=== PATIENT | female | born 1985 | race African-American/Black ===

== ENCOUNTER 2016-08-07 19:05 | Emergency (ER) | payer OTHER ==
[~2016-08-07] VITALS: Ht 165.1 cm; Wt 110.2 kg
[~2016-08-07 19:05] MED LIST: CYCLOBENZAPRINE5 MG PO; ERYTHROMYCIN E3.5 G3 OPHTHALMIC; FLEXERIL PO; FLOXIN OTI0.3 %/5 M1 OT; IBUPROFEN 600600 M1 PO; NAPROSYN500 MG PO; NORCO 5-325 TA1 EACH PO; PENICILLIN VK500 M1 PO; PERCOCET 5-3251 EACH PO; TYLENOL325 MG PO
[2016-08-07 19:07] VITALS: BP 131/82
[2016-08-07] MEDS ORDERED: VENTOLIN HFA 1818 GM INH (19:33)
[2016-08-07] MEDS ORDERED: TESSALON PERLE100 MG PO (19:33)
== END 2016-08-07 20:05 | disposition home or self-care (01) ==
LOC: ER 19:05
DX: J06.9 Acute upper respiratory infection, unspecified (principal); Z86.2 Personal history of diseases of the blood and blood-forming organs and certain disorders involving the immune mechanism; Z88.5 Allergy status to narcotic agent; Z88.1 Allergy status to other antibiotic agents

== ENCOUNTER 2016-12-10 14:09 | Emergency (ER) | payer OTHER ==
[~2016-12-10] VITALS: Ht 165.1 cm; Wt 112.0 kg
[~2016-12-10 14:09] MED LIST changes: +TESSALON PERLE100 MG PO; +VENTOLIN HFA 1818 GM INH
[2016-12-10 14:37] LABS: URINE BILIRUBIN NEGATIVE (Negative); URINE BLOOD 2+ (Negative); URINE COLOR YELLOW; URINE GLUCOSE-RANDOM* NEGATIVE (Negative); URINE KETONES NEGATIVE (Negative); URINE PROTEIN (DIPSTICK) 1+ (Negative); URINE SPECIFIC GRAVITY 1.025 (1.003-1.035)
[2016-12-10 14:38] LABS: URINE LEUKOCYTES-REFLEX 2+ (Negative)
[2016-12-10] MEDS ORDERED: KEFLEX500 MG PO (14:39)
[2016-12-10 14:43] LABS: CASTS None Seen /LPF (None Seen); CRYSTALS None Seen /LPF (None Seen); SQUAMOUS 4-10 Moderate /LPF (0-3); URINE WBC-REFLEX >25 Many /HPF (0-5)
[2016-12-10 14:44] LABS: URINE RBC 0-2 Rare /HPF (0-2)
[2016-12-10 15:12] VITALS: BP 119/76
== END 2016-12-10 15:12 | disposition home or self-care (01) ==
LOC: ER 14:09
PROVIDERS: Physician Assistant
DX: N39.0 Urinary tract infection, site not specified (principal); F10.99 Alcohol use, unspecified with unspecified alcohol-induced disorder; Z86.2 Personal history of diseases of the blood and blood-forming organs and certain disorders involving the immune mechanism; Z88.5 Allergy status to narcotic agent; Z88.2 Allergy status to sulfonamides; Z88.1 Allergy status to other antibiotic agents

== ENCOUNTER 2016-12-31 18:53 | Emergency (ER) | payer OTHER ==
[~2016-12-31] VITALS: Ht 165.1 cm; Wt 113.4 kg
[~2016-12-31 18:53] MED LIST changes: +KEFLEX500 MG PO
[2016-12-31] MEDS ORDERED: ULTRAM 50MG TAB50 MG PO (21:13)
[2016-12-31] MEDS ORDERED: IBUPROFEN 600600 M1 PO (21:13)
[2016-12-31] MEDS ORDERED: TIZANIDINE HCL4 MG PO (21:13)
[2016-12-31 21:37] VITALS: BP 120/86
[2017-01-03] MEDS ORDERED: CYCLOBENZAPRINE5 MG PO (16:13)
[2017-01-03] MEDS ORDERED: MOBIC7.5 MG PO (16:13)
== END 2016-12-31 21:38 | disposition home or self-care (01) ==
LOC: ER 18:53
DX: M25.551 Pain in right hip (principal); M25.511 Pain in right shoulder; F10.99 Alcohol use, unspecified with unspecified alcohol-induced disorder; Z86.2 Personal history of diseases of the blood and blood-forming organs and certain disorders involving the immune mechanism; Z88.5 Allergy status to narcotic agent; Z88.1 Allergy status to other antibiotic agents; Z88.2 Allergy status to sulfonamides; V89.2XXA Person injured in unspecified motor-vehicle accident, traffic, initial encounter; Y93.I9 Activity, other involving external motion; Y92.89 Other specified places as the place of occurrence of the external cause; Y99.8 Other external cause status

== ENCOUNTER 2017-05-22 18:54 | Emergency (ER) | payer OTHER ==
[~2017-05-22] VITALS: Ht 165.1 cm; Wt 108.4 kg
[~2017-05-22 18:54] MED LIST changes: +MOBIC7.5 MG PO; +TIZANIDINE HCL4 MG PO; +ULTRAM 50MG TAB50 MG PO
[2017-11-25] MEDS ORDERED: NAPROSYN500 MG PO (19:38)
== END 2017-05-22 19:41 | disposition home or self-care (01) ==
LOC: ER 18:54
DX: L29.9 Pruritus, unspecified (principal); Z86.2 Personal history of diseases of the blood and blood-forming organs and certain disorders involving the immune mechanism; Z88.5 Allergy status to narcotic agent; Z88.2 Allergy status to sulfonamides; Z88.1 Allergy status to other antibiotic agents

== ENCOUNTER 2018-03-02 09:57 | Emergency (ER) | payer OTHER ==
[~2018-03-02] VITALS: Ht 165.1 cm; Wt 104.3 kg
[2018-03-02 10:00] VITALS: BP 126/71
[2018-03-02] MEDS ORDERED: ERYTHROMYCIN E3.5 G3 OPHTHALMIC (10:17)
== END 2018-03-02 10:44 | disposition home or self-care (01) ==
LOC: ER 09:57
DX: H00.014 Hordeolum externum left upper eyelid (principal); H57.12 Ocular pain, left eye; Z86.2 Personal history of diseases of the blood and blood-forming organs and certain disorders involving the immune mechanism; Z88.5 Allergy status to narcotic agent; Z88.2 Allergy status to sulfonamides; Z88.1 Allergy status to other antibiotic agents

== ENCOUNTER 2018-03-21 23:29 | Emergency (ER) | payer OTHER ==
[~2018-03-21] VITALS: Ht 165.1 cm; Wt 105.2 kg
[2018-03-21 23:53] LABS: ABSOLUTE NEUTROPHILS 7.8 thou/uL (1.4-8.2); BASOPHILS 0.5 % (0.0-2.0); EOSINOPHILS 0.9 % (0.0-3.0); HEMOGLOBIN 11.8 gm/dL (12.0-15.0); LYMPHOCYTES 38.9 % (24.0-44.0); MCH 28.5 pg (26.0-34.0); MCHC 33.9 g/dL (28.0-37.0); MONOCYTES 6.4 % (1.0-8.0); PLATELET COUNT 295 thou/uL (150-400); POLYS 53.3 % (36.0-66.0); RBC 4.16 mil/uL (4.20-5.00); RDW 14.2 % (10.5-14.5); WBC 14.8 thou/uL (4.0-11.0)
[2018-03-22 00:01] LABS: POTASSIUM 3.5 mmol/L (3.5-5.1)
[2018-03-22 00:07] LABS: ALBUMIN 3.8 g/dL (3.4-5.0); TOTAL BILIRUBIN 0.8 mg/dL (<0.1-1.0); TOTAL PROTEIN 8.4 g/dL (6.4-8.2)
[2018-03-22] MEDS ORDERED: KEFLEX500 M1 PO (00:38)
[2018-03-22] MEDS ORDERED: PHENAZOPYRIDIN200 M2 PO (00:38)
[2018-03-22 01:29] LABS: URINE CLARITY CLEAR; URINE SPECIFIC GRAVITY 1.015 (1.005-1.035)
[2018-03-22 01:30] LABS: SSA (PROTEIN CONFIRMATORY) TRACE (APPROX. 5) mg/dL (Negative); URINE GLUCOSE-RANDOM* ND (Negative); URINE PROTEIN (DIPSTICK) ND (Negative)
[2018-03-22 01:31] LABS: ICTOTEST (BILI CONFIRMATORY) Negative (Negative); URINE BILIRUBIN ND (Negative); URINE BLOOD ND (Negative); URINE KETONES ND (Negative); URINE LEUKOCYTES ND (Negative); URINE NITRITE ND (Negative); URINE REDUCING SUBSTANCE 0 %; URINE UROBILINOGEN ND E.U./dl (0.2-1.0)
[2018-03-22 01:32] LABS: BACTERIA None Seen /HPF (None Seen); CASTS None Seen /LPF (None Seen); CRYSTALS None Seen /LPF (None Seen); MUCUS 0-3 Light strn/LPF (None Seen); SQUAMOUS 4-10 Moderate /LPF (0-3); URINE RBC 0-2 Rare /HPF (0-2); URINE WBC 0-5 Rare /HPF (0-5)
[2018-03-22 01:33] LABS: URINE COLOR ORANGE
[2018-03-22 03:40] VITALS: BP 128/76
== END 2018-03-22 03:41 | disposition short-term general hospital (02) ==
LOC: ER 23:29
PROVIDERS: Student in an Organized Health Care Education/Training Program
DX: O03.0 Genital tract and pelvic infection following incomplete spontaneous abortion (principal); O03.4 Incomplete spontaneous abortion without complication; Z88.2 Allergy status to sulfonamides; Z88.5 Allergy status to narcotic agent; Z88.8 Allergy status to other drugs, medicaments and biological substances

== ENCOUNTER 2018-05-17 16:14 | Emergency (ER) | payer OTHER ==
[~2018-05-17] VITALS: Ht 165.1 cm; Wt 107.0 kg
[~2018-05-17 16:14] MED LIST changes: +KEFLEX500 M1 PO; +PHENAZOPYRIDIN200 M2 PO
[2018-05-17] MEDS ORDERED: IBUPROFEN 600600 M1 PO (17:41)
[2018-05-17] MEDS ORDERED: NORFLEX100 MG PO (17:41)
[2018-05-17 18:04] VITALS: BP 133/76
== END 2018-05-17 18:04 | disposition home or self-care (01) ==
LOC: ER 16:14
DX: S39.012A Strain of muscle, fascia and tendon of lower back, initial encounter (principal); Z88.8 Allergy status to other drugs, medicaments and biological substances; Z88.2 Allergy status to sulfonamides; Z86.2 Personal history of diseases of the blood and blood-forming organs and certain disorders involving the immune mechanism; X50.1XXA Overexertion from prolonged static or awkward postures, initial encounter; Y92.89 Other specified places as the place of occurrence of the external cause; Y93.89 Activity, other specified; Y99.8 Other external cause status

== ENCOUNTER → 2018-05-22 | Outpatient (CLI) | payer OTHER ==
[~2018-05-22] MED LIST changes: +NORFLEX100 MG PO
== END ==
LOC: RAD 14:39
DX: M54.5 Low back pain (principal)

== ENCOUNTER 2018-08-26 21:15 | Emergency (ER) | payer OTHER ==
[~2018-08-26] VITALS: Ht 167.6 cm; Wt 106.6 kg
[2018-08-26 22:33] LABS: ABSOLUTE NEUTROPHILS 7.4 thou/uL (1.4-8.2); BASOPHILS 0.5 % (0.0-2.0); EOSINOPHILS 0.4 % (0.0-3.0); HEMATOCRIT 34.3 % (37.0-47.0); HEMOGLOBIN 11.5 gm/dL (12.0-15.0); LYMPHOCYTES 16.7 % (24.0-44.0); MCH 27.9 pg (26.0-34.0); MCHC 33.5 g/dL (28.0-37.0); MCV 83.4 fL (80.0-100.0); MONOCYTES 7.4 % (1.0-8.0); PLATELET COUNT 213 thou/uL (150-400); RBC 4.11 mil/uL (4.20-5.00); RDW 13.9 % (10.5-14.5); WBC 9.9 thou/uL (4.0-11.0)
[2018-08-26 22:39] LABS: CALCIUM 8.1 mg/dL (8.5-10.1); CREATININE 0.9 mg/dL (0.6-1.0); POTASSIUM 3.7 mmol/L (3.5-5.1)
[2018-08-26 22:45] LABS: ALBUMIN 3.3 g/dL (3.4-5.0); TOTAL BILIRUBIN 0.9 mg/dL (<0.1-1.0); TOTAL PROTEIN 7.5 g/dL (6.4-8.2)
[2018-08-26 22:47] LABS: URINE BILIRUBIN NEGATIVE (Negative); URINE BLOOD NEGATIVE (Negative); URINE CLARITY CLEAR; URINE COLOR YELLOW; URINE GLUCOSE-RANDOM* NEGATIVE (Negative); URINE KETONES NEGATIVE (Negative); URINE LEUKOCYTES-REFLEX TRACE (Negative); URINE NITRITE-REFLEX NEGATIVE (Negative); URINE PROTEIN (DIPSTICK) NEGATIVE (Negative); URINE SPECIFIC GRAVITY 1.015 (1.005-1.035); URINE UROBILINOGEN 0.2 E.U./dl (0.2-1.0)
[2018-08-27] MEDS ORDERED: ULTRAM 50MG TAB50 MG PO (01:34)
[2018-08-27] MEDS ORDERED: ZOFRAN ODT4 MG PO (01:34)
[2018-08-27 02:09] VITALS: BP 103/56
--- NOTE | 2018-08-27 08:03 | EKG ---
[address] [place] [address] ELECTROCARDIOGRAM REPORT Name: HERACLIO MAN Room #: DEP [facility]ena[facility]ena[facility] [id number] ������������������ Admission: 08/26/18 ������������������ Attend Phys: Discharge: 08/27/18 ������������������ Date of : 87 Report #: [id number] ����������������������������������������������������������������� [id number] THIS REPORT FOR: //name// [facility] ED Test Date: 2018-08-26 Test Time: 21:23:08 Pat Name: HERACLIO MAN Department: Room: Gender: F [employer] Administrative Assistant: SHARIFA : 1985 Requested By: Kumar Alcantara Order Number: [id number] MD: Mauricio Jimenez Measurements Intervals [place] Rate: 89 P: 68 AR: 144 QRS: 25 QRSD: 83 T: 42 QT: 347 QTc: 423 Interpretive Statements Sinus rhythm Normal tracing No previous ECG available for comparison Electronically Signed On 08-27-2018 8:03:21 CDT by Mauricio Jimenez [email or web address] ��������������������������������������������� <ELECTRONICALLY SIGNED> ���������������������������������������� By: Mauricio Jimenez MD, [facility] ��������������������������������������������� 08/27/18 [id number] 22 Mauricio Jimenez MD, FACC /EPI
== END 2018-08-27 02:09 | disposition home or self-care (01) ==
LOC: ER 21:15
PROVIDERS: Emergency Medicine
DX: K52.9 Noninfective gastroenteritis and colitis, unspecified (principal); Z88.5 Allergy status to narcotic agent; Z88.1 Allergy status to other antibiotic agents; Z88.2 Allergy status to sulfonamides; Z88.8 Allergy status to other drugs, medicaments and biological substances

== ENCOUNTER 2018-09-24 16:05 | Emergency (ER) | payer OTHER ==
[~2018-09-24] VITALS: Ht 167.6 cm; Wt 102.5 kg
[~2018-09-24 16:05] MED LIST changes: +ZOFRAN ODT4 MG PO
[2018-09-24 16:24] LABS: URINE BILIRUBIN NEGATIVE (Negative); URINE BLOOD 3+ (Negative); URINE COLOR YELLOW; URINE GLUCOSE-RANDOM* NEGATIVE (Negative); URINE KETONES NEGATIVE (Negative); URINE NITRITE-REFLEX NEGATIVE (Negative); URINE PROTEIN (DIPSTICK) 1+ (Negative); URINE UROBILINOGEN 0.2 E.U./dl (0.2-1.0)
[2018-09-24 16:25] LABS: URINE CLARITY CLOUDY; URINE LEUKOCYTES-REFLEX 2+ (Negative)
[2018-09-24 16:27] LABS: SQUAMOUS 4-10 Moderate /LPF (0-3); URINE WBC-REFLEX >25 Many /HPF (0-5)
[2018-09-24 16:28] LABS: CASTS None Seen /LPF (None Seen); CRYSTALS None Seen /LPF (None Seen)
[2018-09-24] MEDS ORDERED: PHENAZOPYRIDIN200 M2 PO (16:43)
[2018-09-24] MEDS ORDERED: KEFLEX500 M1 PO (16:43)
[2018-09-24 17:09] VITALS: BP 140/81
== END 2018-09-24 17:10 | disposition home or self-care (01) ==
LOC: ER 16:05
PROVIDERS: Physician Assistant
DX: N39.0 Urinary tract infection, site not specified (principal); L50.9 Urticaria, unspecified; Z88.8 Allergy status to other drugs, medicaments and biological substances; Z88.2 Allergy status to sulfonamides; Z86.2 Personal history of diseases of the blood and blood-forming organs and certain disorders involving the immune mechanism

== ENCOUNTER 2019-08-31 13:09 | Emergency (ER) | payer OTHER ==
[~2019-08-31] VITALS: Ht 167.6 cm; Wt 104.3 kg
[2019-08-31 13:46] LABS: URINE BILIRUBIN NEGATIVE (Negative); URINE BLOOD NEGATIVE (Negative); URINE CLARITY CLEAR; URINE COLOR YELLOW; URINE GLUCOSE-RANDOM* NEGATIVE (Negative); URINE KETONES NEGATIVE (Negative); URINE LEUKOCYTES-REFLEX NEGATIVE (Negative); URINE NITRITE-REFLEX NEGATIVE (Negative); URINE PROTEIN (DIPSTICK) TRACE (Negative); URINE SPECIFIC GRAVITY 1.025 (1.005-1.035)
[2019-08-31] MEDS ORDERED: MEDROLDOSEPACK PO (14:57)
[2019-08-31] MEDS ORDERED: CYCLOBENZAPRINE5 MG PO (14:57)
[2019-08-31] MEDS ORDERED: ULTRAM 50MG TAB50 MG PO (14:57)
[2019-08-31 15:49] VITALS: BP 135/80
== END 2019-08-31 15:49 | disposition home or self-care (01) ==
LOC: ER 13:09
PROVIDERS: Physician Assistant
DX: M54.5 Low back pain (principal); Z79.2 Long term (current) use of antibiotics; Z79.899 Other long term (current) drug therapy; Z88.6 Allergy status to analgesic agent; Z88.8 Allergy status to other drugs, medicaments and biological substances; Z88.2 Allergy status to sulfonamides; X50.1XXA Overexertion from prolonged static or awkward postures, initial encounter; Y93.89 Activity, other specified; Y92.89 Other specified places as the place of occurrence of the external cause; Y99.8 Other external cause status

== ENCOUNTER 2019-12-17 10:10 | Emergency (ER) | payer OTHER ==
[~2019-12-17] VITALS: Ht 167.6 cm; Wt 108.9 kg
[~2019-12-17 10:10] MED LIST changes: +MEDROLDOSEPACK PO
[2019-12-17 10:23] VITALS: BP 121/67
[2019-12-17] MEDS ORDERED: ERYTHROMYCIN E3.5 G3 OPHTHALMIC (10:51)
== END 2019-12-17 11:05 | disposition home or self-care (01) ==
LOC: ER 10:10
DX: H00.011 Hordeolum externum right upper eyelid (principal); Z79.899 Other long term (current) drug therapy; Z88.2 Allergy status to sulfonamides; Z88.8 Allergy status to other drugs, medicaments and biological substances

== ENCOUNTER 2020-07-18 16:51 | Emergency (ER) | payer OTHER ==
[~2020-07-18] VITALS: Ht 167.6 cm; Wt 104.3 kg
[2020-07-18 17:03] VITALS: BP 115/70
[2020-07-18 17:25] LABS: URINE BILIRUBIN NEGATIVE (Negative); URINE BLOOD NEGATIVE (Negative); URINE CLARITY CLEAR; URINE COLOR YELLOW; URINE GLUCOSE-RANDOM* NEGATIVE (Negative); URINE KETONES NEGATIVE (Negative); URINE LEUKOCYTES-REFLEX NEGATIVE (Negative); URINE NITRITE-REFLEX NEGATIVE (Negative); URINE PROTEIN (DIPSTICK) NEGATIVE (Negative); URINE SPECIFIC GRAVITY 1.025 (1.005-1.035)
[2020-07-18] MEDS ORDERED: ZANAFLEX4 MG PO (17:25)
== END 2020-07-18 18:19 | disposition home or self-care (01) ==
LOC: ER 16:51
PROVIDERS: Nurse Practitioner
DX: S39.012A Strain of muscle, fascia and tendon of lower back, initial encounter (principal); Z88.5 Allergy status to narcotic agent; Z88.1 Allergy status to other antibiotic agents; Z88.8 Allergy status to other drugs, medicaments and biological substances; V49.88XA Car occupant (driver) (passenger) injured in other specified transport accidents, initial encounter; Y93.89 Activity, other specified; Y92.413 State road as the place of occurrence of the external cause; Y99.9 Unspecified external cause status

== ENCOUNTER 2020-09-05 10:22 | Emergency (ER) | payer OTHER ==
[~2020-09-05] VITALS: Ht 167.6 cm; Wt 104.3 kg
[~2020-09-05 10:22] MED LIST changes: +ZANAFLEX4 MG PO
[2020-09-05] MEDS ORDERED: NOHOMEMEDICATIONS (10:53)
[2020-09-05 12:36] LABS: ABSOLUTE NEUTROPHILS 2.7 thou/uL (1.4-8.2); BASOPHILS 0.5 % (0.0-2.0); EOSINOPHILS 0.2 % (0.0-3.0); HEMATOCRIT 42.6 % (37.0-47.0); HEMOGLOBIN 14.3 gm/dL (12.0-15.0); LYMPHOCYTES 33.2 % (24.0-44.0); MCH 29.3 pg (26.0-34.0); MCHC 33.5 g/dL (28.0-37.0); MCV 87.4 fL (80.0-100.0); PLATELET COUNT 203 thou/uL (150-400); POLYS 57.1 % (36.0-66.0); RBC 4.87 mil/uL (4.20-5.00); WBC 4.8 thou/uL (4.0-11.0)
[2020-09-05 12:41] LABS: CALCIUM 8.5 mg/dL (8.5-10.1); CREATININE 0.8 mg/dL (0.6-1.0); POTASSIUM 3.8 mmol/L (3.5-5.1)
[2020-09-05 12:47] LABS: ALBUMIN 3.8 g/dL (3.4-5.0); TOTAL BILIRUBIN 0.4 mg/dL (0.2-1.0); TOTAL PROTEIN 8.3 g/dL (6.4-8.2)
[2020-09-05 12:50] LABS: URINE BILIRUBIN NEGATIVE (Negative); URINE BLOOD NEGATIVE (Negative); URINE CLARITY CLEAR; URINE COLOR YELLOW; URINE GLUCOSE-RANDOM* NEGATIVE (Negative); URINE KETONES 2+ (Negative); URINE LEUKOCYTES-REFLEX NEGATIVE (Negative); URINE NITRITE-REFLEX NEGATIVE (Negative); URINE PROTEIN (DIPSTICK) NEGATIVE (Negative); URINE SPECIFIC GRAVITY >= 1.030 (1.005-1.035); URINE UROBILINOGEN 0.2 E.U./dl (0.2-1.0)
[2020-09-05] MEDS ORDERED: MEDROLDOSEPACK PO (13:31)
[2020-09-05] MEDS ORDERED: AZITHROMYCIN500 MG PO (13:31)
[2020-09-05] MEDS ORDERED: ONDANSETRON HCL4 M2 PO (13:31)
[2020-09-05 13:51] VITALS: BP 122/83
== END 2020-09-05 13:50 | disposition home or self-care (01) ==
LOC: ER 10:22
PROVIDERS: Physician Assistant
DX: U07.1 COVID-19 (principal); J12.89 Other viral pneumonia; R10.13 Epigastric pain; R10.12 Left upper quadrant pain; Z88.5 Allergy status to narcotic agent; Z79.899 Other long term (current) drug therapy; Z88.2 Allergy status to sulfonamides